=== PATIENT | male | born 1955 | race Caucasian/White ===

== ENCOUNTER 2018-06-23 21:46 | Inpatient (IN) | payer OTHER ==
[~2018-06-23] VITALS: Ht 172.7 cm; Wt 74.0 kg
[2018-06-23 22:19] VITALS: Ht 172.7 cm; Wt 74.0 kg
[2018-06-24] VITALS (7 sets, daily range): BP systolic 103–129; BP diastolic 52–73
[2018-06-24 00:08] LABS: BASOPHIL % 0.1 % (0-2); PLATELET COUNT 269 x10^3mcL (130-400)
[2018-06-24 00:18] LABS: CALCIUM 9.3 mg/dL (8.5-10.1); CARBON DIOXIDE 27.2 mmol/L (21-32); CHLORIDE SERUM 101 mmol/L (98-107); CREATININE SERUM 1.2 mg/dL (0.7-1.3); GFR1 > 60 mL/min; GLUCOSE SERUM 124 mg/dL (74-106); POTASSIUM SERUM 4.1 mmol/L (3.5-5.1); SODIUM SERUM 139 mmol/L (136-145)
[2018-06-24 00:23] LABS: ALBUMIN 3.6 g/dL (3.4-5.0); ALKALINE PHOSPHATASE 76 U/L (46-116); ALT/SGPT 23 U/L (16-63); AST/SGOT 25 U/L (15-37); BILIRUBIN TOTAL 1.1 mg/dL (0.20-1.00); LIPASE 182 IU/L (73-393); TOTAL PROTEIN, SERUM 7.1 g/dL (6.4-8.2)
[2018-06-24 01:34] LABS: microscopic required? NO
[2018-06-24] MEDS ORDERED: FLOMAX0.4 MG PO (01:48)
[2018-06-24] MEDS ORDERED: LOVASTATIN20 MG PO (01:49)
[2018-06-24 01:55] LABS: UA SPECIFIC GRAVITY 1.015 (1.005-1.035); urine erythrocyte NEGATIVE (NEGATIVE)
[2018-06-24] MEDS ORDERED: ZOFRAN ODT8 MG SL (04:50)
[2018-06-24] MEDS ORDERED: RANITIDINE HYD150 M2 PO (04:52)
[2018-06-24] MEDS ORDERED: BACTRIM1 TAB (04:54)
[2018-06-24 05:41] LABS: BASOPHIL % 0.1 % (0-2); PLATELET COUNT 256 x10^3mcL (130-400); RED CELL DISTRIBUTION WIDTH 14.1 % (11.5-14.5)
[2018-06-24 06:15] LABS: ALBUMIN 3.2 g/dL (3.4-5.0); BILIRUBIN TOTAL 1.41 mg/dL (0.20-1.00); CALCIUM 8.9 mg/dL (8.5-10.1); CARBON DIOXIDE 30.7 mmol/L (21-32); CREATININE SERUM 1.3 mg/dL (0.7-1.3); MAGNESIUM 1.9 mg/dL (1.8-2.4); PHOSPHOROUS 3.3 mg/dL (2.5-4.9); POTASSIUM SERUM 4.8 mmol/L (3.5-5.1); TOTAL PROTEIN, SERUM 6.7 g/dL (6.4-8.2)
[2018-06-25 05:14] VITALS: BP 124/61
[2018-06-25 05:58] LABS: PLATELET COUNT 238 x10^3mcL (130-400); RED CELL DISTRIBUTION WIDTH 13.9 % (11.5-14.5)
[2018-06-25 06:30] LABS: ALKALINE PHOSPHATASE 58 U/L (46-116); ALT/SGPT 87 U/L (16-63); AST/SGOT 77 U/L (15-37); BILIRUBIN TOTAL 1.05 mg/dL (0.20-1.00); CALCIUM 8.8 mg/dL (8.5-10.1); CARBON DIOXIDE 29.1 mmol/L (21-32); CHLORIDE SERUM 106 mmol/L (98-107); CREATININE SERUM 1.2 mg/dL (0.7-1.3); GFR1 > 60 mL/min; GLUCOSE SERUM 113 mg/dL (74-106); POTASSIUM SERUM 4.5 mmol/L (3.5-5.1); SODIUM SERUM 142 mmol/L (136-145); TOTAL PROTEIN, SERUM 6.3 g/dL (6.4-8.2)
[2018-06-25 06:32] LABS: BASOPHIL % 0 % (0-2)
[2018-06-25 06:40] LABS: ALBUMIN 2.6 g/dL (3.4-5.0)
[2018-06-25 09:13] VITALS: BP 131/90
[2018-06-25 17:38] VITALS: BP 133/75
[2018-06-25 19:25] VITALS: BP 111/66
[2018-06-25 21:54] VITALS: BP 125/75
[2018-06-26 05:18] VITALS: BP 122/76
[2018-06-26 06:19] LABS: BASOPHIL % 0.2 % (0-2); PLATELET COUNT 235 x10^3mcL (130-400); RED CELL DISTRIBUTION WIDTH 14.3 % (11.5-14.5)
[2018-06-26 06:32] LABS: ALKALINE PHOSPHATASE 57 U/L (46-116); ALT/SGPT 82 U/L (16-63); AST/SGOT 54 U/L (15-37); BILIRUBIN TOTAL 1.11 mg/dL (0.20-1.00); CALCIUM 8.8 mg/dL (8.5-10.1); CARBON DIOXIDE 28.8 mmol/L (21-32); CHLORIDE SERUM 104 mmol/L (98-107); CREATININE SERUM 1.2 mg/dL (0.7-1.3); GFR1 > 60 mL/min; GLUCOSE SERUM 96 mg/dL (74-106); SODIUM SERUM 141 mmol/L (136-145); TOTAL PROTEIN, SERUM 6.3 g/dL (6.4-8.2)
[2018-06-26 06:33] LABS: ALBUMIN 2.5 g/dL (3.4-5.0)
[2018-06-26 09:01] VITALS: BP 116/73
[2018-06-26 16:30] VITALS: BP 115/75
[2018-06-26 19:20] VITALS: BP 124/68
[2018-06-26 20:49] VITALS: BP 111/75
[2018-06-27 06:01] VITALS: BP 122/79
[2018-06-27 07:00] LABS: ALKALINE PHOSPHATASE 68 U/L (46-116); ALT/SGPT 76 U/L (16-63); AST/SGOT 38 U/L (15-37); BILIRUBIN TOTAL 1.26 mg/dL (0.20-1.00); CALCIUM 9.3 mg/dL (8.5-10.1); CHLORIDE SERUM 105 mmol/L (98-107); CREATININE SERUM 1.1 mg/dL (0.7-1.3); GFR1 > 60 mL/min; GLUCOSE SERUM 96 mg/dL (74-106); POTASSIUM SERUM 4.1 mmol/L (3.5-5.1); SODIUM SERUM 142 mmol/L (136-145); TOTAL PROTEIN, SERUM 6.8 g/dL (6.4-8.2)
[2018-06-27 07:03] LABS: ALBUMIN 2.5 g/dL (3.4-5.0)
[2018-06-27 07:11] LABS: BASOPHIL % 0.1 % (0-2); PLATELET COUNT 273 x10^3mcL (130-400); RED CELL DISTRIBUTION WIDTH 14.1 % (11.5-14.5)
[2018-06-27] MEDS ORDERED: FLA500 PO (07:44)
[2018-06-27] MEDS ORDERED: CIPRO500 MG PO (07:44)
[2018-06-27] MEDS ORDERED: NORCO1 TA2 PO (07:44)
[2018-06-27 11:18] VITALS: BP 122/79
== END 2018-06-27 17:00 | disposition home or self-care (01) | DRG 419 ==
LOC: ED 21:46 → MU 06-24 01:44
PROVIDERS: Emergency Medicine; Internal Medicine Pulmonary Disease; Surgery
PROC: 0FT44ZZ Resection of Gallbladder, Percutaneous Endoscopic Approach (ICD-10-PCS; principal; 2018-06-24 13:30)
DX: K81.0 Acute cholecystitis (principal); E78.5 Hyperlipidemia, unspecified; N40.0 Benign prostatic hyperplasia without lower urinary tract symptoms; D72.829 Elevated white blood cell count, unspecified; Z87.891 Personal history of nicotine dependence
CPT/HCPCS: 97530-GP; J0330; J1170; J1650; J2175; J2250; J2270; J2405; J2543; J2704; J2710; J3010; J3490; J7030; J7120; Q0092

== ENCOUNTER 2019-10-18 15:09 | Emergency (ER) | payer OTHER ==
[~2019-10-18] VITALS: Ht 175.3 cm; Wt 81.2 kg
[~2019-10-18 15:09] MED LIST: BACTRIM1 TAB; CIPRO500 MG PO; FLA500 PO; FLOMAX0.4 MG PO; LOVASTATIN20 MG PO; NORCO1 TA2 PO; RANITIDINE HYD150 M2 PO; ZOFRAN ODT8 MG SL
[2019-10-18 15:21] VITALS: Ht 175.3 cm; Wt 81.2 kg
[2019-10-18 16:23] LABS: BASOPHIL % 0.4 % (0-2); PLATELET COUNT 291 x10^3mcL (130-400); RED CELL DISTRIBUTION WIDTH 13.8 % (11.5-14.5)
[2019-10-18 16:35] LABS: CALCIUM 9.2 mg/dL (8.5-10.1); CARBON DIOXIDE 29.3 mmol/L (21-32); CREATININE SERUM 1.3 mg/dL (0.7-1.3); POTASSIUM SERUM 4.3 mmol/L (3.5-5.1)
[2019-10-18 16:39] LABS: ALBUMIN 3.4 g/dL (3.4-5.0); BILIRUBIN TOTAL 0.53 mg/dL (0.20-1.00); TOTAL PROTEIN, SERUM 7.2 g/dL (6.4-8.2)
[2019-10-18 19:54] VITALS: BP 143/96
== END 2019-10-18 19:54 | disposition home or self-care (01) ==
LOC: ED 15:09
PROVIDERS: Student in an Organized Health Care Education/Training Program
DX: K57.32 Diverticulitis of large intestine without perforation or abscess without bleeding (principal); E78.00 Pure hypercholesterolemia, unspecified
CPT/HCPCS: 36415